=== PATIENT | female | born 1990 | race Two or more races ===

== ENCOUNTER 2024-08-28 09:14 | Emergency (ER) | payer OTHER ==
[~2024-08-28] VITALS: Ht 162.6 cm; Wt 86.2 kg
[2024-08-28] MEDS ORDERED: FAMOtidine 10 MG/ML (4ML VIAL) IV ONE (10:15)
[2024-08-28] MEDS ORDERED: 0.9 % SODIUM CHLORIDE 1,000 ML IV ONE (10:15)
[2024-08-28] MEDS ORDERED: ONDANSETRON HCL 2 MG/ML VIAL IV ONE (10:15)
[2024-08-28] MEDS ORDERED: FAMOTIDINE/PF 20 MG/2 ML VIAL ONE (10:17)
[2024-08-28] MEDS ORDERED: ONDANSETRON HCL 2 MG/ML VIAL ONE (10:17)
[2024-08-28 11:09] LABS: HEMATOCRIT 37.6 % (36.0-45.00); HEMOGLOBIN 12.6 g/dL (12.0-15.00); MEAN CELL VOLUME 97.1 fL (80.00-100.00); MEAN CORPUSCULAR HEMOGLOBIN 32.5 pg (27.00-32.0); MEAN CORPUSCULAR HGB CONC 33.4 g/dl (32.0-36.0); PLATELET COUNT 345 K/uL (150-450); RED BLOOD COUNT 3.87 M/uL (4.00-6.00)
[2024-08-28 11:51] LABS: BILIRUBIN TOTAL 0.43 mg/dL (0.3-1.2); CALCIUM 9.5 mg/dL (8.5-10.1); CREATININE SERUM 0.58 mg/dL (0.55-1.02); GLOBULINA 3.9 G/DL (2.4-3.5); POTASSIUM 3.5 mEq/L (3.5-5.1); TOTAL PROTEIN 7.9 gm/dL (6.4-8.2)
[2024-08-28] MEDS ORDERED: PEPCID AC20 MG PO (13:32)
[2024-08-28] MEDS ORDERED: ZOFRAN8 MG PO (13:32)
== END 2024-08-28 14:22 | disposition home or self-care (01) ==
LOC: ER 09:17
PROVIDERS: General Practice
DX: K52.89 Other specified noninfective gastroenteritis and colitis (principal); E86.0 Dehydration; Z20.822 Contact with and (suspected) exposure to COVID-19